=== PATIENT | female | born 1945 | race Caucasian/White ===

== ENCOUNTER → 2016-11-20 | Outpatient (CLI) | payer MEDICARE, OTHER ==
--- NOTE | 2016-11-20 13:33 | KCIC ---
INDICATION: Low back pain after an injury 6 weeks ago. Pain into left hip. No improvement with physical therapy. TECHNIQUE: Sagittal T1, sagittal T2, sagittal STIR, axial T1, and axial T2 sequences are provided. Comparison is from August 28, 2014. FINDINGS: There is no malalignment. There is no marrow edema. There is no worrisome marrow lesion. There is diffuse disc desiccation. Disc height is relatively maintained. Conus medullaris terminates at the inferior endplate of L2, lower limit of normal. It is normal in signal intensity. The numbering system assumes 5 lumbar type vertebral bodies. Findings by individual level are as follows: T11-T12, T12-L1: There are disc bulges at these levels without canal or foraminal compromise. L1-L2: There is no canal or foraminal compromise. L2-L3: This is the first level included in the axial plane. There is a disc bulge. There is a shallow central protrusion with annular fissure. There is no canal or foraminal compromise. There is minimal facet and ligamentum flavum hypertrophy. L3-L4: There is a mild disc bulge. There is a left foraminal herniation contacting the exiting nerve root. There is facet and ligamentum flavum hypertrophy, minimal. There is no canal stenosis. There is left lateral recess narrowing. There is mild foraminal narrowing. L4-L5: Disc bulge and minimal facet and ligamentum flavum hypertrophy are noted with mild lateral recess narrowing. There is no foraminal compromise. L5-S1: Minimal disc bulge and central protrusion are noted. There is facet hypertrophy. There is no canal or foraminal compromise. IMPRESSION: 1. Degenerative disc disease and facet and ligamentum flavum hypertrophy are noted throughout the lumbar spine. There is a new left foraminal herniation at L3-L4 which contacts the exiting nerve root. Correlate with L3 radicular symptoms. 2. With the exception of L3-L4, other levels appear relatively stable compared to prior study with no new foraminal narrowing and with no significant canal stenosis. There are stable levels of lateral recess narrowing. Electronically signed by: Richard Ervin MD (11/20/2016 1:31 PM) [id number]
== END | disposition home or self-care (01) ==
LOC: KCIC MRI 11:55
PROVIDERS: ATTEND Anesthesiology Pain Medicine
DX: M51.16 Intervertebral disc disorders with radiculopathy, lumbar region (principal); M25.552 Pain in left hip
CPT/HCPCS: 72148